=== PATIENT | male | born 1995 | race Caucasian/White ===

== ENCOUNTER 2022-07-11 14:54 | Emergency (ER) | payer BC, MEDICAID ==
--- NOTE | 2022-07-11 15:41 | ERPHSYRPT ---
- History of Present Illness Time Seen by Provider: 07/11/22 15:31 Source: patient Exam Limitations: no limitations Patient Subjective Stated Complaint: Head injury Triage Nursing Assessment: Patient ambulated back to ED and transferred self to bed. Patient A+O X3. Patient's skin pink, warm and dry. Patient complains of headache and neck pain from a fall on Friday. Patient is type 1 diabetic and had a diabetic episode friday causing him to fall out of bed hitting the right side of his head. Patient states ever since his fall he has had N/V and head and neck pain. Patient complains of headache 11/04. Physician History: Patient a 27-year-old male presents to our ED for evaluation of headache and neck pain. Patient fell and hit his head 2 days ago. Patient had a hypoglycemic episode. However his sugars have been well controlled since. Since his fall, patient has been having a headache since. Patient has experience some nausea and vomiting after the trauma. However no active nausea vomiting at this time. No chest pain or shortness of breath. No diarrhea. No rash. No slurred speech. No numbness tingling or weakness. Patient voices no other complaints or concerns at this time. Portions of this note were created with voice recognition technology. There may be grammatical, spelling, punctuation or sound alike errors Occurred: days ago (2 days ago) Severity: moderate Head Injury Location: global Method of Injury: fell Loss of Consciousness: no loss of consciousness Associated Symptoms: denies symptoms Allergies/Adverse Reactions: No Known Drug Allergies Allergy (Unverified 07/11/22 15:02) Hx Influenza Vaccination/Date Given: No Hx Pneumococcal Vaccination/Date Given: No Immunizations Up to Date: Yes Travel Risk - International Travel Have you traveled outside of the country in past 3 weeks: No - Coronavirus Screening Are you exhibiting any of the following symptoms?: No - Vaccine Status Have you recieved a Covid-19 vaccination: Yes 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[employer]: [employer] - Vaccination Dates Date of 2cond Vaccination (if applicable): na - Review of Systems Constitutional: No Symptoms, No Fever, No Chills Eyes: No Symptoms Ears, Nose, & Throat: No Symptoms Respiratory: No Symptoms, No Cough, No Dyspnea Cardiac: No Symptoms, No Chest Pain, No Edema, No Syncope Abdominal/Gastrointestinal: No Symptoms, No Abdominal Pain, No Nausea, No Vomiting, No Diarrhea Genitourinary Symptoms: No Symptoms, No Dysuria Musculoskeletal: No Symptoms, No Back Pain, No Neck Pain Skin: No Symptoms, No Rash Neurological: No Symptoms, No Dizziness, No Focal Weakness, No Sensory Changes Psychological: No Symptoms Endocrine: No Symptoms Hematologic/Lymphatic: No Symptoms Immunological/Allergic: No Symptoms All Other Systems: Reviewed and Negative - Past Medical History Pertinent Past Medical History: Yes Neurological History: No Pertinent History ENT History: No Pertinent History Cardiac History: No Pertinent History Respiratory History: No Pertinent History Endocrine Medical History: Diabetes Type I Musculoskeletal History: No Pertinent History GI Medical History: No Pertinent History History: No Pertinent History Psycho-Social History: No Pertinent History Male Reproductive Disorders: No Pertinent History - Past Surgical History Past Surgical History: Yes Neuro Surgical History: No Pertinent History Cardiac: No Pertinent History Respiratory: No Pertinent History Gastrointestinal: No Pertinent History Genitourinary: No Pertinent History Musculoskeletal: No Pertinent History Male Surgical History: No Pertinent History Other Surgical History: septoplasty - Social History Smoking Status: Never smoker Exposure to second hand smoke: Yes Drug Use: none Patient Lives Alone: No - Nursing Vital Signs Nursing Vital Signs: Initial Vital Signs Temperature 98.0 F 07/11/22 15:04 Pulse Rate 100 H 07/11/22 15:04 Respiratory Rate 18 07/11/22 15:04 Blood Pressure 140/91 07/11/22 15:04 O2 Sat by Pulse Oximetry 96 07/11/22 15:04 Pain Scale Pain Intensity 6 - [place] Coma Score Best Eye Response ([place]): (4) open spontaneously Best Verbal Response ([place]): (5) oriented Best Motor Response ([place]): (6) obeys commands [place] Total: 15 - Physical Exam General Appearance: no apparent distress, alert Eye Exam: bilateral eye: normal inspection, PERRL, EOMI ENT Exam: airway nml Neck Exam: supple, trachea midline, full range of motion, normal alignment, other (Some tenderness along cervical paraspinal musculature. Likely due to muscle spasm) Cardiovascular/Respiratory Exam: chest non-tender, normal breath sounds, regular rate/rhythm Gastrointestinal/Abdominal Exam: soft, non tender, no distention Back Exam: normal inspection, No vertebral tenderness Extremity Exam: non-tender, normal range of motion, normal inspection Mental Status Exam: alert, oriented x 3, cooperative paraplanner Exam: normal hearing, normal speech, PERRL Coordination/Gait Exam: normal finger to nose, normal gait, normal cerebellar function Motor/Sensory Exam: no motor deficit, no sensory deficit, CN II-XII intact Skin Exam: normal color, warm, dry, No rash Lymphatic Exam: No adenopathy SpO2 Interpretation: normal SpO2: 96 O2 Delivery: Room Air - Course Nursing assessment & vital signs reviewed: Yes - Radiology Exams C-Spine X-ray Interpretation: Teleradiologist Report (Cervical lordotic reversal likely due to paraspinal spasm.) - CT Exams Head CT Interpretation: Tele-radiologist Report (Negative CT head without contrast.) Ordered Tests: Active Orders 24 hr Category Date Time Status CERVICAL SPINE WO CONTRAST [CT] Stat Exams 07/11/22 15:14 Completed HEAD WITHOUT CONTRAST [CT] Stat Exams 07/11/22 15:12 Completed Medication Summary Discontinued Medications Generic Name Dose Route Start Last Admin Trade Name Freq PRN Reason Stop Dose Admin Ondansetron HCl 4 mg 07/11/22 15:51 07/11/22 16:08 Zofran 4 Mg/Udtablet Orally Disintegrating PO 07/11/22 15:52 4 mg STAT ONE Administration Ondansetron HCl Confirm 07/11/22 16:08 Zofran 4 Mg/Udtablet Orally Disintegrating Administered 07/11/22 16:09 Dose 4 mg .ROUTE .STCAVI [employer]-MED ONE - Progress Progress: improved Progress Note: Patient reassessed. He is resting comfortably. CT head negative for acute intracranial pathology. CT cervical spine negative for fracture dislocation however there is lordotic reversal likely due to paraspinal musculature spasm. Patient's complaint is acute. Vital stable. Complexity of problems addressed is moderate. Acute complicated with concussion. No critical care time. Complexity of data reviewed and analyzed is limited. Test ordered test results reviewed. Patient served as independent historian. No outside documents reviewed. Risk of complication and or risk morbidity/mortality of patient management is moderate. Patient received a CAT scan of the cervical spine and head. Patient received Zofran for nausea. A prescription for Zofran was forwarded to patient's pharmacy. Patient resting comfortably. No nausea no vomiting. Will discharge home. Patient agrees to follow-up with his primary care doctor within 48 hours for reevaluation. Discharge time is approximately 10 minutes. g done in caring for the patient and why. Document if I discussed code status full code/DNR and everything in between Document any changes in working Diagnosis 07/11/22 16:53 Counseled pt/family regarding: diagnosis, need for follow-up, rad results - Departure Departure Disposition: Home Clinical Impression: Fall, Nausea, Concussion, Cervical paraspinal muscle spasm Condition: Stable Critical Care Time: No Referrals: MARVIN RAMIREZ MD [Primary Care Provider] - Follow up/PCP as directed Additional Instructions: Discharge/Care Plan AISHWARYA CASPER was seen on 07/11/22 in the Emergency Room. The patient was counseled regarding Diagnosis,Lab results, Imaging studies, need for follow up and when to return to the Emergency Room. Prescriptions given: Discharge Note I have spoken with the patient and/or caregivers. I have explained the patient's condition, diagnosis and treatment plan based on the information available to me at this time. I have answered the patient's and/or caregiver's questions and addressed any concerns. The patient and/or caregivers have as good understanding of the patient's diagnosis, condition and treatment plan as can be expected at this point. The vital signs have been stable. The patient's condition is stable and appropriate for discharge from the emergency department. The patient will pursue further outpatient evaluation with the primary care physician or other designated or consulting physician as outlined in the dis charge instructions. The patient and/or caregivers are agreeable to this plan of care and follow-up instructions have been explained in detail. The patient and/or caregivers have received these instruction. The patient/and or caregivers are aware that any significant change in condition or worsening of symptoms should prompt an immediate return to this or the closest emergency department or call 911. Prescriptions: Ondansetron ODT 4 MG [Zofran Odt 4 mg] 4 mg PO Q6H PRN PRN #10 tablet PRN Reason: Vomiting
[2022-07-11] MEDS ORDERED: ZOFRAN ODT 4 MG PO ONE (15:51)
[2022-07-11] MEDS ORDERED: ZOFRAN ODT 4 MG ONE (16:08)
--- NOTE | 2022-07-11 16:26 | XRAY ---
Indication: Headache, nausea, and dizziness following fall 2 days ago. Multiple contiguous axial images obtained through the head without contrast. Comparison: None Normal appearing brain parenchyma, ventricles, and bony calvarium. Visualized paranasal sinuses and mastoid air cells are clear. Impression: Normal CT head without contrast exam.
--- NOTE | 2022-07-11 16:27 | XRAY ---
Indication: Headache, nausea, and dizziness following fall 2 days ago. Multiple contiguous axial images obtained through the cervical spine. Sagittal and coronal reformatted images obtained. Comparison: None Axial images negative for acute fracture, suspicious bony lesions, or spinal canal stenosis. Facets are symmetric. Sagittal and coronal reformatted images demonstrates lordotic reversal, positional versus paraspinal spasm. Vertebral body heights/disc spaces maintained. No acute compression fracture, subluxation, or jumped facet. Normal appearing cranial cervical junction. Visualized noncontrasted soft tissues including lung apices are unremarkable. Impression: Cervical lordotic reversal, positional versus paraspinal spasm. Remaining CT cervical spine is normal.
[2022-07-11 17:07] VITALS: BP 121/81; PULSE 81; O2SAT 99
== END 2022-07-11 17:07 | disposition home or self-care (01) ==
LOC: ED 14:54
DX: S06.0X0A Concussion without loss of consciousness, initial encounter (principal); W06.XXXA Fall from bed, initial encounter; Y92.003 Bedroom of unspecified non-institutional (private) residence as the place of occurrence of the external cause; R11.2 Nausea with vomiting, unspecified; M62.838 Other muscle spasm; M54.2 Cervicalgia; E10.9 Type 1 diabetes mellitus without complications
CPT/HCPCS: 70450; 72125; 99283; Q0162